=== PATIENT | male | born 1995 | race African-American/Black ===

== ENCOUNTER 2020-03-06 07:09 | Emergency (ER) | payer OTHER ==
[2020-03-06 07:35] LABS: #Basophils 0.1 thou/uL (0.0-0.2); #Eosinphils 0.1 thou/uL (0.0-0.7); #Lymphocytes 2.6 thou/uL (1.20-3.40); #Monocytes 0.5 thou/uL (0.11-0.59); #Neutrophils 5.5 thou/uL (1.40-6.50); %Basophils 0.9 % (0.0-1.0); %Eosinophils 1.4 % (0.0-10.0); %Monocytes 6.1 % (0.0-10.0); %Neutrophils 62.6 % (42.0-75.0); Hemoglobin 16.5 g/dL (14.0-18.0); Mean Corpuscular HGB CONC 34.8 g/dL (32.0-36.0); Mean Corpuscular Hemoglobin 30.6 pg (27.0-31.0); Platelet Count 188 thou/uL (130-400); RBC Distribution Width 12.1 % (11.5-14.5); White Blood Cell (WBC) Count 8.8 thou/uL (4.8-10.8)
[2020-03-06 07:53] LABS: ALT (SGPT) 40 U/L (8-55); AST (SGOT) 20 U/L (5-34); Albumin 4.4 g/dL (3.5-5.0); Alkaline Phosphatase 67 U/L (40-110); Anion Gap 17 mmol/L (10-20); BUN (Urea Nitrogen) 18 mg/dL (8.9-20.6); Bilirubin, Total 0.5 mg/dL (0.2-1.2); Calc. Creatinine Clearance 0 mL/min (70-130); Calcium 9.1 mg/dL (7.8-10.44); Carbon Dioxide 22 mmol/L (22-29); Chloride 106 mmol/L (98-107); Globulin 2.9 g/dL (2.4-3.5); Glucose 136 mg/dL (70-105); Potassium 3.8 mmol/L (3.5-5.1); Protein, Total 7.3 g/dL (6.0-8.3); Sodium 141 mmol/L (136-145)
[2020-03-06] MEDS ORDERED: Boostrix 0.5 ML (Tdap) VIAL ONE (07:56)
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
[2020-03-06] MEDS ORDERED: Lidocaine 1% (PF) 30 ML VIAL ONE (08:18)
[2020-03-06] MEDS ORDERED: Lidocaine 1% w/Epinephrine 1:100K 20 ML VIAL ONE (08:18)
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
[2020-03-06] MEDS ORDERED: Bacitracin 1 PK ONE ×4 (10:13→10:26)
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
== END 2020-03-06 10:12 | disposition home or self-care (01) ==
LOC: ERS 07:09
DX: S61.512A Laceration without foreign body of left wrist, initial encounter (principal); S01.81XA Laceration without foreign body of other part of head, initial encounter; S21.212A Laceration without foreign body of left back wall of thorax without penetration into thoracic cavity, initial encounter; S21.119A Laceration without foreign body of unspecified front wall of thorax without penetration into thoracic cavity, initial encounter; W45.8XXA Other foreign body or object entering through skin, initial encounter
CPT/HCPCS: 12005; 12013; 12032; 36415; 70498; 71045; 71260; 74177; 80053; 85025; 86850; 86900; 86901; 90471; 90715; G0390; J2001